=== PATIENT | female | born 1970 | race Caucasian/White ===

== ENCOUNTER → 2017-10-07 | Outpatient (CLI) | payer MEDICAID | LOC: FIMAGING 09:41 | PROVIDERS: ATTEND Internal Medicine | DX: R10.30 Lower abdominal pain, unspecified (principal); M25.551 Pain in right hip; R93.7 Abnormal findings on diagnostic imaging of other parts of musculoskeletal system ==

== ENCOUNTER → 2017-11-25 | Outpatient (CLI) | payer MEDICAID | LOC: FIMAGING 16:17 | PROVIDERS: ATTEND Internal Medicine | DX: S73.191A Other sprain of right hip, initial encounter (principal); M51.36 Other intervertebral disc degeneration, lumbar region; M47.896 Other spondylosis, lumbar region ==

== ENCOUNTER 2018-01-18 05:33 | Day surgery (SDC) | payer MEDICAID ==
[2018-01-18] MEDS ORDERED: LR 1,000 ML IV ONE (06:18)
[2018-01-18] MEDS ORDERED: LIDOCAINE 1% 2 ML INJ ID PRN (06:18)
[2018-01-18 06:54] LABS: PLATELET COUNT 371 10^3/uL (150-400)
[2018-01-18] MEDS ORDERED: MIDAZOLAM 2 MG/2 ML VIAL IVP ONE (06:59)
--- NOTE | 2018-01-18 06:59 | PDANEPAE ---
ANE Past Medical History - Cardiovascular History Hx Hypertension: No Hx Arrhythmias: No Hx Chest Pain: No Hx Coronary Artery / Peripheral Vascular Disease: No Hx CHF / Valvular Disease: No Hx Palpitations: No - Pulmonary History Hx COPD: No Hx Asthma/Reactive Airway Disease: Yes Hx Recent Upper Respiratory Infection: No Hx Oxygen in Use at Home: No Hx Sleep Apnea: No Sleep Apnea Screening Result - Last Documented: Negative Pulmonary History Comment: broncitis, uses inhalers - Neurologic History Hx Cerebrovascular Accident: No Hx Seizures: No Hx Dementia: No - Endocrine History Hx Diabetes: No Hypothyroid: No Hyperthyroid: No Obesity: yes, moderate - Renal History Hx Renal Disorders: No - Liver History Hx Hepatic Disorders: No - Neurological & Psychiatric Hx Hx Neurological and Psychiatric Disorders: Yes Neurological / Psychiatric History Comment: PTSD not on any medications - Cancer History Hx Cancer: No - Congenital Disorder History Hx Congenital Disorders: No - GI History GERD: moderate Hx Gastrointestinal Disorders: Yes Gastrointestinal History Comment: acid reflux. hx dysphagia - Other Health History Other Health History: dentures on top. anemia. iron deficent. menorragia - Chronic Pain History Chronic Pain: No (lower back hip muscle is torn) - Surgical History Prior Surgeries: appendectomy. tubal ligation ANE Review of Systems Review of systems is: negative Review of Systems: - Exercise capacity METS (RN): 3 METS ANE Patient History - Allergies Allergies/Adverse Reactions: Penicillins Allergy (Verified 01/15/18 11:00) Other-Enter Comments - Home Medications Home medications: home medication list seen and reviewed Home Medications: Advair 100/50 (*) 01/15/18 [Last Taken 01/18/18 04:30] Albuterol 01/15/18 [Last Taken 1 Day Ago ~01/17/18] Flonase Nasal [place] 01/15/18 [Last Taken 1 Day Ago ~01/17/18] Ibuprofen 01/15/18 [Last Taken 2 Weeks Ago ~01/04/18] Tizanidine HCl 01/15/18 [Last Taken 1 Day Ago ~01/17/18] Zyrtec 01/15/18 [Last Taken 1 Day Ago ~01/17/18] - NPO status NPO Since - Liquids (Date): 01/17/18 NPO Since - Liquids (Time): 20:00 NPO Since - Solids (Date): 01/17/18 NPO Since - Solids (Time): 14:00 - Anes Hx Anes Hx: no prior problems - Smoking Hx Smoking Status: Former smoker - Family Anes Hx Family Hx Anesthesia Complications: none ANE Labs/Vital Signs - Labs Result Diagrams: 01/18/18 06:40 - Vital Signs Blood Pressure: 114/78 Heart Rate: 77 Respiratory Rate: 18 O2 Sat (%): 94 Height: 154.94 cm Weight: 93.44 kg ANE Physical Exam - Airway Neck exam: FROM Mallampati Score: Class 2 Mouth exam: normal dental/mouth exam - Pulmonary Pulmonary: no respiratory distress - Cardiovascular Cardiovascular: regular rate and rhythym - ASA Status ASA Status: III ANE Anesthesia Plan Anesthesia Plan: GA w LMA
[2018-01-18] MEDS ORDERED: DEXAMETHASONE 4 MG/ML VIAL ONE (07:06)
[2018-01-18] MEDS ORDERED: fentaNYL 100 MCG/2 ML INJ ONE (07:06)
[2018-01-18] MEDS ORDERED: KETOROLAC 30 MG/1 ML SDV ONE (07:06)
[2018-01-18] MEDS ORDERED: PROPOFOL 200 MG/20 ML VIAL ONE (07:06)
[2018-01-18] MEDS ORDERED: ONDANSETRON 4 MG/2 ML VIAL ONE (07:06)
[2018-01-18] MEDS ORDERED: LIDOCAINE 2% 5 ML SDV ONE (07:10)
[2018-01-18] MEDS ORDERED: BUPIVACAINE 0.25% 30 ML SDV ONE (07:15)
[2018-01-18] MEDS ORDERED: SILVER NITRATE APPLICATOR 1 APPL TP ONE (07:16)
[2018-01-18] MEDS ORDERED: OPIUM/BELLADONNA ALKALO SUPP PR ONE (07:16)
--- NOTE | 2018-01-18 07:23 | PDGENHP ---
History & Physical Chief Complaint: AUB History of Present Illness: 47 yo who I met with in the office to discuss worsening AUB - heavy and increasingly irregular periods. Discussed options - prefers HSC ablation. Pertinent Past, Social, Family History: Non-pertinent. Relevant Physical Exam: NAD, RRR, LCTAB. Assessment & Plan Assessment: Preop: HSC, possible endometrial polypectomy/sampling, Bianca ablation Routine preop orders. No need for abx. Home from PACU with script for [place] and post-op instructions from me. RONNY
[2018-01-18] MEDS ORDERED: NALOXONE HCL 0.4 MG/ML INJ IVP PRN (08:08)
[2018-01-18] MEDS ORDERED: ONDANSETRON 4 MG/2 ML VIAL IVP PRN (08:08)
[2018-01-18] MEDS ORDERED: LR 500 ML IV PRN (08:08)
[2018-01-18] MEDS ORDERED: HYDROmorphONE/DILAUDID 2 MG/ML INJ IVP PRN (08:08)
[2018-01-18] MEDS ORDERED: fentaNYL 100 MCG/2 ML INJ IVP PRN (08:08)
[2018-01-18] MEDS ORDERED: PROMETHAZINE HCL 25 MG/ML INJ IVP PRN (08:08)
[2018-01-18] MEDS ORDERED: LABETALOL HCL 5 MG/ML 20 ML MDV IVP PRN (08:08)
[2018-01-18] MEDS ORDERED: HYDROCODONE/APAP 5/325 TAB PO PRN (08:08)
[2018-01-18] MEDS ORDERED: ACETAMINOPHEN 500 MG TAB PO PRN (08:08)
[2018-01-18] MEDS ORDERED: ALBUTEROL 3 ML DEYVIAL IH PRN (08:08)
--- NOTE | 2018-01-18 08:08 | POSTANESTH ---
Post Anesthetic Evaluation Cardiovascular Status: Normal, Stable Respiratory Status: Normal, Stable Level of Consciousness/Mental Status: Can Participate in Eval, Mildly Sleepy, Arousable Pain Control: Adequate, Prn Tx Ordered Nausea/Vomiting Control: Adequate, Prn Tx Ordered Complications Possibly Related to Anesthesia: None Noted
--- NOTE | 2018-01-18 08:20 | POSTOPPROG ---
Post Op Note Date of Operation: 01/18/18 Surgeon: Denzel Sim Bolt Machine Operator: None Anesthesia: GET(General Endotracheal) Pre-op Diagnosis: AUB Post-op Diagnosis: Same Procedure: Diagnostic hysteroscopy, endometrial sampling, Bianca ablation Findings: Normal size and shape of cavity, small polypoid lesions multiple Inf/Abcess present in the surg proc area at time of surgery?: No EBL: Minimal Complications: None Specimen(s): Endometrial sampling/polyps
--- NOTE | 2018-01-18 08:23 | SUROPNOTE ---
[facility] Operative Report - Surgery Date of Operation: 01/18/18 Surgeon: Denzel Sim Locomotive Boilermaker: None Anesthesia: GET(General Endotracheal) Pre-op Diagnosis: AUB Post-op Diagnosis: Same Procedure: Diagnostic hysteroscopy, endometrial sampling, Bianca ablation Findings: Normal size and shape of cavity, small polypoid lesions multiple Inf/Abcess present in the surg proc area at time of surgery?: No EBL: Minimal Complications: None Specimen(s): Endometrial sampling/polyps Technique: The patient was taken to the operating room where her identity and planned procedure were confirmed during timeout. The patient was placed under general anesthesia without issue. When anesthesia was found to be adequate, the patient was prepped and draped in the normal sterile fashion in dorsal lithotomy position in Hernán stirrups. No antibiotics were indicated nor given. The patient was straight cath'd for only 15cc concentrated urine. Villard speculum placed in the vagina and anterior lip of the cervix grasped with single-tooth tenaculum. A paracervical block was placed with 5cc of local anesthetic with epi at 4:00 and 8:00 locations at the cervico-vaginal junction - 12cc total. The cervix was carefully serially dilated first to allow uterine sound measurement, then to 6mm to allow TruClear hysteroscope. Dilation proceeded easily with no concerns for injury to the uterus. Scope inserted and findings noted as above. The TruClear device was used to remove any polypoid lesions and sample other surrounding endometrium. The scope was removed and prepared for ablation. A Deborah dilator was then advanced to the inner cervical os to measure the cervical length. The Bianca device was inserted to the fundus and cavity assessment initiated and passed. Treatment cycle initiated and full 120 seconds completed - successful ablation cycle. The hysteroscope was reinserted following ablation and confirmed uniform burn on all surfaces. The tenaculum was removed from the cervix and the tenaculum sites were found to be hemostatic. Sponge, lap, needle , and instrument counts were announced as as correct. B&O suppository placed at the conclusion of the case. I was scrubbed and present for the entire procedure.
[2018-01-18] MEDS ORDERED: ALBUTEROL 3 ML DEYVIAL ONE (10:09)
[2018-01-18 13:06] VITALS: BP 112/73
--- NOTE | 2018-01-22 09:07 | CPEKG ---
Heart Rate: 74 RR Interval: 811 P-R Interval: 144 QRSD Interval: 76 QT Interval: 424 QTC Interval: 471 P Napier: 4 QRS Napier: 70 T Wave Napier: 75 EKG Severity - NORMAL ECG - EKG Impression: SINUS RHYTHM Preliminary Awaiting MD Review
== END 2018-01-18 13:20 | disposition home or self-care (01) ==
LOC: FSGY 05:33
PROVIDERS: ATTEND Obstetrics & Gynecology
PROC: 0UDB8ZX Extraction of Endometrium, Via Natural or Artificial Opening Endoscopic, Diagnostic (ICD-10-PCS; principal; 2018-01-18 07:15)
PROC: 0U5B8ZZ Destruction of Endometrium, Via Natural or Artificial Opening Endoscopic (ICD-10-PCS; principal; 2018-01-18 07:15)
DX: N93.9 Abnormal uterine and vaginal bleeding, unspecified (principal); N84.0 Polyp of corpus uteri; D64.9 Anemia, unspecified; Z87.891 Personal history of nicotine dependence
CPT/HCPCS: 58353; C1782; J0171; J1100; J1885; J2250; J2405; J2704; J3010; J7613

== ENCOUNTER → 2018-03-02 | Outpatient (CLI) | payer MEDICAID | LOC: FIMAGING 14:57 | PROVIDERS: ATTEND Internal Medicine | DX: Z12.31 Encounter for screening mammogram for malignant neoplasm of breast (principal) ==

== ENCOUNTER → 2018-04-05 | Outpatient (CLI) | payer MEDICAID | LOC: FIMAGING 13:01 | PROVIDERS: ATTEND Internal Medicine | DX: M51.36 Other intervertebral disc degeneration, lumbar region (principal); M43.8X7 Other specified deforming dorsopathies, lumbosacral region ==

== ENCOUNTER 2018-09-24 04:38 | Inpatient (IN) | payer MEDICAID ==
--- NOTE | 2018-09-23 16:11 | PDGENHP ---
History and Physical - Chief Complaint Preop: TLH, LILIA, cysto - History of Present Illness 48 yo who I met in the office this past Summer to discuss long history of heavy and painful periods. Had benign EBX and recent normal pap. Discussed options and ultimately underwent Diagnostic hysteroscopy, endometrial sampling and Bianca ablation 01/18/18 with me here at [facility]. Path from that procedure also benign, normal cavity anatomically. Did well for 3-4 months with very light periods but reports now that her periods have returned to just as heavy as they have ever been. Discussed what tx options she has left and she'd like to proceed with hysterectomy. History Information - Allergies/Home Medication List Allergies/Adverse Reactions: Penicillins Allergy (Verified 01/15/18 11:00) Other-Enter Comments Home Medications: Advair 100/50 (*) 01/15/18 [Last Taken 01/18/18 04:30] Albuterol 01/15/18 [Last Taken 1 Day Ago ~01/17/18] Flonase Nasal [place] 01/15/18 [Last Taken 1 Day Ago ~01/17/18] Ibuprofen 01/15/18 [Last Taken 2 Weeks Ago ~01/04/18] Tizanidine HCl 01/15/18 [Last Taken 1 Day Ago ~01/17/18] Zyrtec 01/15/18 [Last Taken 1 Day Ago ~01/17/18] I have personally reviewed and updated: family history, medical history, social history, surgical history Past Medical History: Asthma, GERD, sciatica, depression/anxiety - Surgical History Additional surgical history: Appendectomy (open), left knee scope, tubal via minilap following her youngest child - Family History Positive for: non-pertinent - Social History Smoking Status: Former smoker Review of Systems Review of Systems: ROS: 10pt was reviewed & negative except for what was stated in HPI & below Physical Exam Physical Exam: Obese, NAD Belly is obese, surgical scars well-healed. Bimanual exam, uterus is small, mobile, non-tender. Assessment & Plan Assessment: Preop: TLH, LILIA, cysto for abnormal uterine bleeding, s/p recent endometrial ablation. - Routine preop abx (Gent and Clinda due to PCN allergy). - Pyridium 200mg PO x 1 PREOP. - Preop testing per Pre-admission team. RONNY
[2018-09-24] MEDS ORDERED: PHENAZOPYRIDINE HCL 200 MG TAB PO ONE (06:02)
[2018-09-24] MEDS ORDERED: GENTAMICIN SULFATE 120 MG in D5W 100 ML IV ONE (06:02)
[2018-09-24] MEDS ORDERED: CLINDAMYCIN 900 MG/DEXTROSE 50 ML IV ONE (06:02)
[2018-09-24] MEDS ORDERED: LR 1,000 ML IV ONE (06:03)
[2018-09-24] MEDS ORDERED: MIDAZOLAM 2 MG/2 ML VIAL IVP ONE (07:10)
--- NOTE | 2018-09-24 07:10 | PDANEPAE ---
ANE History of Present Illness total hysterectomy for abnormal uterine bleeding ANE Past Medical History - Cardiovascular History Hx Hypertension: No Hx Arrhythmias: No Hx Chest Pain: No Hx Coronary Artery / Peripheral Vascular Disease: No Hx CHF / Valvular Disease: No Hx Palpitations: No - Pulmonary History Hx COPD: No Hx Asthma/Reactive Airway Disease: Yes Hx Recent Upper Respiratory Infection: No Hx Oxygen in Use at Home: No Hx Sleep Apnea: No Sleep Apnea Screening Result - Last Documented: Negative Pulmonary History Comment: broncitis, uses inhalers - Neurologic History Hx Cerebrovascular Accident: No Hx Seizures: No Hx Dementia: No - Endocrine History Hx Diabetes: No Hypothyroid: No Hyperthyroid: No Obesity: moderate - Renal History Hx Renal Disorders: No - Liver History Hx Hepatic Disorders: No - Neurological & Psychiatric Hx Hx Neurological and Psychiatric Disorders: Yes Neurological / Psychiatric History Comment: PTSD not on any medications - Cancer History Hx Cancer: No - Congenital Disorder History Hx Congenital Disorders: No - GI History Hx Gastrointestinal Disorders: Yes Gastrointestinal History Comment: acid reflux. hx dysphagia - Other Health History Other Health History: dentures on top. anemia. iron deficent. menorragia. h/ o IV drug use - Chronic Pain History Chronic Pain: No (lower back hip muscle is torn) - Surgical History Prior Surgeries: appendectomy. tubal ligation ANE Review of Systems Review of Systems: - Exercise capacity Exercise capacity: >=4 METS METS (RN): 3 METS ANE Patient History - Allergies Allergies/Adverse Reactions: Penicillins Allergy (Verified 01/15/18 11:00) Other-Enter Comments shellfish derived Allergy (Verified 09/24/18 06:21) Unknown - Home Medications Home medications: home medication list seen and reviewed Home Medications: Advair 100/50 (*) 01/15/18 [Last Taken 09/20/18] Albuterol 01/15/18 [Last Taken 09/19/18] Flonase Nasal [place] 01/15/18 [Last Taken 09/20/18] Ibuprofen 01/15/18 [Last Taken 1 Month Ago ~08/25/18] Zyrtec 01/15/18 [Last Taken 09/20/18] - NPO status NPO Status: no food or drink >8 hours NPO Since - Liquids (Date): 09/23/18 NPO Since - Liquids (Time): 20:30 NPO Since - Solids (Date): 09/23/18 NPO Since - Solids (Time): 20:30 - Anes Hx Anes Hx: no prior problems - Smoking Hx Smoking Status: Former smoker - Family Anes Hx Family Hx Anesthesia Complications: none ANE Labs/Vital Signs - Vital Signs Vital Signs: reviewed preoperatively; see RN documention for details Blood Pressure: 127/71 Heart Rate: 83 Respiratory Rate: 18 O2 Sat (%): 93 Height: 152.4 cm Weight: 88.451 kg ANE Physical Exam - Airway Neck exam: FROM Mallampati Score: Class 2 Mouth exam: poor dentition, dentures - Pulmonary Pulmonary: no respiratory distress - Cardiovascular Cardiovascular: regular rate and rhythym - ASA Status ASA Status: III ANE Anesthesia Plan Anesthesia Plan: general endotracheal anesthesia
[2018-09-24] MEDS ORDERED: PROPOFOL 200 MG/20 ML VIAL ONE (07:13)
[2018-09-24] MEDS ORDERED: fentaNYL 100 MCG/2 ML INJ ONE ×2 (07:13→09:46)
[2018-09-24] MEDS ORDERED: ROCURONIUM 50 MG/5 ML VIAL ONE ×2 (07:15→08:06)
[2018-09-24] MEDS ORDERED: LIDOCAINE 2% 5 ML SDV ONE (07:15)
[2018-09-24] MEDS ORDERED: BUPIVACAINE 0.5% 30 ML SDV ONE (07:20)
[2018-09-24] MEDS ORDERED: EPINEPHrine 1 MG/ML INJ ONE (07:20)
[2018-09-24] MEDS ORDERED: DEXAMETHASONE 4 MG/ML VIAL ONE ×2 (07:21)
[2018-09-24] MEDS ORDERED: ONDANSETRON 4 MG/2 ML VIAL ONE (07:22)
[2018-09-24] MEDS ORDERED: ePHEDrine SULFATE 25 MG/5 ML SYR ONE (07:43)
[2018-09-24] MEDS ORDERED: BUPIVACAINE/EPI 0.25% 30 ML SDV ONE (07:43)
[2018-09-24] MEDS ORDERED: PHENYLEPHRINE HCL 100 MCG/ML SYR ONE (07:46)
[2018-09-24] MEDS ORDERED: MEPERIDINE 25 MG/0.5 ML AMP IVP PRN (08:31)
[2018-09-24] MEDS ORDERED: fentaNYL 100 MCG/2 ML INJ IVP PRN (08:31)
[2018-09-24] MEDS ORDERED: ALBUTEROL 3 ML DEYVIAL IH PRN (08:31)
[2018-09-24] MEDS ORDERED: PHENYLEPHRINE HCL 100 MCG/ML SYR IVP PRN (08:31)
[2018-09-24] MEDS ORDERED: DIAZEPAM 5 MG/ML 1 ML SYR IVP PRN (08:31)
[2018-09-24] MEDS ORDERED: oxyCODONE IR 5 MG TAB PO PRN (08:31)
[2018-09-24] MEDS ORDERED: LR 500 ML IV PRN (08:31)
[2018-09-24] MEDS ORDERED: ACETAMINOPHEN 500 MG TAB PO PRN (08:31)
[2018-09-24] MEDS ORDERED: LABETALOL HCL 5 MG/ML 20 ML MDV IVP PRN (08:31)
[2018-09-24] MEDS ORDERED: NALOXONE HCL 0.4 MG/ML INJ IVP PRN (08:31)
[2018-09-24] MEDS ORDERED: METOCLOPRAMIDE 10 MG/2 ML VIAL IVP PRN (08:31)
[2018-09-24] MEDS ORDERED: PROMETHAZINE HCL 25 MG/ML INJ IVP PRN (08:31)
[2018-09-24] MEDS ORDERED: HYDROmorphONE/DILAUDID 2 MG/ML INJ IVP PRN (08:31)
[2018-09-24] MEDS ORDERED: GLYCOPYRROLATE 0.2 MG/1 ML VIAL ONE ×2 (09:22)
[2018-09-24] MEDS ORDERED: NEOSTIGMINE METHYLSULFATE 5 MG/5 ML SYR ONE (09:22)
[2018-09-24] MEDS ORDERED: KETOROLAC 30 MG/1 ML SDV ONE (09:28)
--- NOTE | 2018-09-24 10:01 | POSTOPPROG ---
Post Op Note Date of Operation: 09/24/18 Surgeon: Denzel Sim Usability Specialist: Cherelle Cruz MD Anesthesia: GET(General Endotracheal) Pre-op Diagnosis: Abnormal uterine bleeding, Menorrhagia Post-op Diagnosis: Same Procedure: Total laparoscopic hysterectomy, bilateral salpingectomies, cystoscopy Findings: Nomal anatomy, evidence of prior tubal ligation Inf/Abcess present in the surg proc area at time of surgery?: No EBL: Minimal (25cc) Complications: None Specimen(s): Uterus, cervix, bilateral fallopian tubes
--- NOTE | 2018-09-24 10:02 | SUROPNOTE ---
[facility] Operative Report - Surgery Date of Operation: 09/24/18 Surgeon: Denzel Sim Regional Sales Coordinator: Cherelle Cruz MD Anesthesia: GET(General Endotracheal) Pre-op Diagnosis: Abnormal uterine bleeding, Menorrhagia, Failed endometrial ablation Post-op Diagnosis: Same Procedure: Total laparoscopic hysterectomy, bilateral salpingectomies, cystoscopy Findings: Normal intra-abdominal anatomy - normal visible aspects of liver, greater curvature of stomach, large and small bowel, Normal appearance of uterus , normal bilateral ovaries. Both tubes with evidence of prior tubal ligation procedure. Inf/Abcess present in the surg proc area at time of surgery?: No EBL: Minimal (25cc) Complications: None Specimen(s): Uterus, cervix, bilateral fallopian tubes Technique: The patient was taken to the operating room where confirmation of patient and procedure was obtained and general anesthesia was obtained without difficulty. She was placed in the dorsal lithotomy position and examined under anesthesia. Weight-based Clinda and Gent was ordered bc of PCN allergy. She was prepared and draped in the normal sterile fashion. A li catheter was placed. A bivalve speculum was then placed in the vagina and the anterior lip of the cervix was grasped with a single tooth tenaculum. A V-Care uterine manipulator was then placed into the uterus to provide a means to manipulate the uterus. The speculum was removed from the vagina and the V care cervical cup was secured. Attention was then turned to the patients abdomen where local with epi was injected in the umbilical fold and a 5mm transverse skin incision was made with the scalpel. A 5mm Optiview trocar was used to directly insert the trocar into the abdominal cavity under direct visualization. The abdomen was then insufflated with carbon dioxide gas. A brief scan of the abdominal cavity revealed no injuries with entry into the abdomen. Second and third skin incisions were made in the RLQ and LLQ after injection of local prior to insertion of two 5 mm trocars under direct visualization. Patient was placed in trendelenburg to improve visualization of the pelvic organs. Inspection of the pelvis revealed above findings. An atraumatic grasper was used to retract and elevate the uterus.The left fallopian tube was grasped and elevated and the Ligasure was used to divide the mesosalpinx and amputate the tube. The left utero-ovarian ligament and left round ligament were fulgurated and transected using the Ligasure. The anterior leaf of the broad ligament was transected on the left side down to the midline. Attention was then turned to the right. The right fallopian tube was grasped and elevated and the Ligasure was used to divide the mesosalpinx and amputate the tube. Tubes were brought out of 5mm ports. The right utero-ovarian ligament and right round ligament were fulgurated and transected using the harmonic. The anterior leaf of the broad ligament was transected on the right side down to the midline. The bladder was gently dissected off the lower uterine segment. The uterine arteries were identified and fulgurated and transected with excellent hemostasis. The cardinal ligament was then fulgurated and transected serially, bilaterally to the level of the V care cervical cup. The Ligasure Lhook was then used to make a colpotomy anteriorly and was then extended circumferentially around the cervix. Visualization of the pelvis revealed excellent hemostasis. The uterus was then removed vaginally without issue. We did take down some physiologic adhesions of the left transverse colon and proximal sigmoid to the left pelvic sidewall to facilitate colon retraction when closing the cuff. This was done with Ligasure and clearly far from the colon throughout that dissection. A FERNY bulb with 180 0 Vloc suture 9" within it was then placed in the vagina to maintain pneumoperitoneum. Instruments were exchanged for needle drivers and the cuff was closed using the Vloc suture in standard running unlocked fashion. Following this the pelvis was copiously irrigated demonstrating excellent hemostasis. Cystoscopy was performed with a 70 degree scope with normal findings - no injuries to the bladder itself and bilateral strong ureteral jets were easily seen with help of Pyridium-stained urine. The lateral trocars were removed under direct visualization and the abdomen was desufflated. The umbilical trocar was removed. The skin incisions were closed with 4-0 monocryl and Dermabond. The sponge, lap, instrument and needle counts were announced as correct times two. The patient was extubated and taken to the recovery room in stable condition. I was present and scrubbed and present during the entire procedure.
[2018-09-24] MEDS ORDERED: POLYETHYLENE GLYCOL 3350 17 GM PKT PO PRN (10:13)
[2018-09-24] MEDS ORDERED: MAGNESIUM HYDROXIDE 30 ML UDCUP PO PRN (10:13)
[2018-09-24] MEDS ORDERED: LACTULOSE 20 GM/30 ML UDCUP PO PRN (10:13)
[2018-09-24] MEDS ORDERED: BISACODYL 10 MG SUPP PR PRN (10:13)
[2018-09-24] MEDS ORDERED: ONDANSETRON 4 MG/2 ML VIAL IVP PRN (10:16)
[2018-09-24] MEDS ORDERED: HYDROmorphONE/DILAUDID 1 MG/ML INJ IVP PRN (10:16)
[2018-09-24] MEDS ORDERED: ONDANSETRON DISINTEGRATING 4 MG TAB PO PRN (10:16)
[2018-09-24] MEDS ORDERED: ZOLPIDEM TARTRATE 5 MG TAB PO PRN (10:16)
[2018-09-24] MEDS ORDERED: D5W LR 1,000 ML IV SCH (10:30)
[2018-09-24] MEDS ORDERED: PROMETHAZINE HCL 25 MG/ML INJ ONE (11:15)
[2018-09-24] MEDS ORDERED: HYDROmorphONE/DILAUDID 2 MG/ML INJ ONE (11:16)
--- NOTE | 2018-09-24 11:47 | POSTANESTH ---
Post Anesthetic Evaluation Cardiovascular Status: Normal, Stable Respiratory Status: Normal, Stable Level of Consciousness/Mental Status: Can Participate in Eval Pain Control: Adequate, Prn Tx Ordered Nausea/Vomiting Control: Adequate, Prn Tx Ordered Complications Possibly Related to Anesthesia: None Noted
[2018-09-24] MEDS: ACETAMINOPHEN 500 MG TAB PO SCH ×2 (13:37→18:37)
[2018-09-24] MEDS: IBUPROFEN 600 MG TAB PO SCH ×3 (13:38→22:07)
[2018-09-24] MEDS: KETOROLAC 30 MG/1 ML SDV IVP SCH ×2 (13:38→15:34)
--- NOTE | 2018-09-24 16:12 | ASMTCMCOM ---
CM Note CM Note Notes: Pt admitted for scheduled hysterectomy, anticipate she will dc home w/support of boyfriend when medically stable. CM availble for any needs. DC Plan: Independent Date Signed: 09/24/2018 04:11 PM Electronically Signed By:Katherine Manjarrez RN
--- NOTE | 2018-09-24 17:59 | SOAPPROG ---
SOAP Progress Note Assessment/Plan: Assessment: POD0 sp TLH, BS, cysto for menorrhagia and AUB. - VS WNL and stable, pain controlled, voiding without issue. - Routine advancements. OK to dc fluids if taking in adequate PO. - Will put script for [place] and dc instructions in chart - plan will be for dc tomorrow after seen by irrigation manager physician Ely Hearn, and after social work has had a change to see if we can help with housing/placement. - F/u with me in 2 and 6 wks for postop checks. - Lovenox 40 daily ordered to be given tomorrow AM before discharge. JM Subjective: Bekah is feeling pretty good - Pain minimal, has been up and around, tolerating full dinner this evening. Voiding without issue. Flatus but no BM. Pt related to me for the first time this evening that she and Eddie have recently been homeless and sleeping in her car for the past many weeks. Social work has already been consulted and they'll see if they can help with placement tomorrow AM prior to discharge. Objective: Vital Signs Temp Pulse Resp BP Pulse Ox 36.3 C 71 16 97/50 L 2 L 09/24/18 16:58 09/24/18 16:58 09/24/18 16:58 09/24/18 16:58 09/24/18 16:58 09/23/18 09/24/18 09/25/18 05:59 05:59 05:59 Intake Total 3300 Output Total 575 Balance 2725 - Time Spent With Patient Time Spent With Patient: 10mins - Pending Discharge Pending Discharge Within 24 Hours: Yes Pending Discharge Date: 09/25/18 Pending Discharge Time: 11:00 Physical Exam - Physical Exam General Appearance: WD/WN, alert, no apparent distress Abdomen: non-tender, soft, other (Incision CDI Dermabond), No distended, No guarding, No rebound ICD10 Worksheet Patient Problems: Problems Problem Status Onset Abnormal uterine bleeding (AUB) Acute
--- NOTE | 2018-09-24 18:01 | PDDCSUM ---
Discharge Summary Discharge Summary: Admitting Diagnosis: 1. AUB 2. Menorrhagia Discharge Diagnosis: 1. Same 2. S/p total laparoscopic hysterectomy, bilateral salpingectomies, cystoscopy Procedures: 1. Total laparoscopic hysterectomy, bilateral salpingectomies, cystoscopy Hospital Course: Bekah was admitted on the day of surgery and underwent an uncomplicated procedure. Her li came out in the OR after the case. She had IV pain meds that were converted to orals once she was able to tolerate some diet. On her first hospital day she had issues weaning her O2 needs, was having issues with CP and some SOB, nausea with vomiting and pain not adequately controlled with orals. We did feel it was important that she stay another night in the hospital. On the afternoon of POD2 she was off O2, pain much better controlled - and ready for home. Social work was consulted to see her during her stay as she and her partner Eddie are currently homeless and had been recently staying in their car. They connected Bekah with multiple resources for housing. At this point the plan is for them to stay in a motel for the next few nights while she recovers. Will dc now with plan to f/u with me in 2 and 6 wks. Consultations: None Condition: Excellent Disposition: Home (motel) w/ partner support New Discharge Medications: Percocet, Take 1-2 tabs PO q4hrs PRN for pain, #25 Continue scheduled ibuprofen per discharge instructions. Continue bowel regimen PRN per discharge instructions. Discharge Instructions: See discharge instruction sheet. Pending Studies: None Follow-up: 2 and 6 wks.
[2018-09-24] MEDS: FLUTICASONE/SALMETER 100/50MCG DISKUS IH SCH (20:59)
[2018-09-24] MEDS: SENNOSIDES/DOCUSATE SODIUM TAB PO SCH (20:59)
[2018-09-25] MEDS: ACETAMINOPHEN 500 MG TAB PO SCH ×3 (02:55→18:24)
[2018-09-25] MEDS ORDERED: PNEUMOCOCCAL 0.5ML VACCINE VIAL (PNEUMOVAX 23) IM ONE (04:16)
[2018-09-25] MEDS: IBUPROFEN 600 MG TAB PO SCH ×5 (04:21→21:57)
[2018-09-25] MEDS: FLUTICASONE/SALMETER 100/50MCG DISKUS IH SCH ×2 (08:15→21:51)
[2018-09-25] MEDS: SENNOSIDES/DOCUSATE SODIUM TAB PO SCH ×2 (09:33→20:41)
[2018-09-25] MEDS: oxyCODONE IR 5 MG TAB PO PRN ×2 (09:34→13:33)
[2018-09-25] MEDS: ENOXAPARIN 40 MG/0.4 ML SYR SC SCH (09:38)
--- NOTE | 2018-09-25 10:48 | ASMTCMCOM ---
CM Note CM Note Notes: Pt and fiance requested to meet with CM, they shared that they are living in their car. They want to know if CM can provide assistance with a place to stay. CM gave pt resources for [facility] in [place] or the [facility] in [place]. Per Edward at [facility], pt must choose [facility] or [place] for services. CM offered to reserve retirement bed but unless pt's fiance can get one she declines. Gave pt and fiance gloves, hats, and sweat shirts. DC Plan: Independent Date Signed: 09/25/2018 10:47 AM Electronically Signed By:Katherine Manjarrez RN
--- NOTE | 2018-09-25 12:58 | SOAPPROG ---
SOAP Progress Note Assessment/Plan: Assessment: 48 y/o POD #1 s/p TLH BSO secondary to menorrhagia after failed endometrial ablation Plan: She has had increased asthma symptoms, nausea and is having difficulties ambulating without light headness and dizziness. She is tolerating small amounts of crackers with her po pain meds. I feel we could justify 1 more night of inpatient care due to difficulties with recovery. I am concerned about a post-op recovery in a car especially with very cold temperatures in August. However, I feel that tomorrow, we will need to proceed with discharge. tiller worker has offered her a retirement bed, but she would like to stay with her fience. They will consider their options for d/c tomorrow. 09/25/18 12:59 Subjective: Pt reports having chest tightness and SOB and nausea. She reports feeling light headed and dizzy and is having difficulties moving around the room. She is voiding without difficulty, tolerating po pain meds and denies bleeding. She reports Ibuprofen, Tylenol and Oxy IR are controlling her pain. She has had some nausea relieved by Zofran. She was seen by case management this am to help with placement, because they have been living in their car. They report they do not have anywhere to go for her recovery and they are afraid to be in their car in the cold especially when she is immediately post-op. Case management said she could reserve a bed for Bekah in a retirement, but generally they will not be able to be together. They do not wish to do this and are not sure what they can do. Objective: Vital Signs Temp Pulse Resp BP Pulse Ox 36.6 C 58 L 18 165/89 H 92 09/25/18 11:12 09/25/18 11:12 09/25/18 11:12 09/25/18 11:12 09/25/18 11:12 Laboratory Results 09/25/18 04:30 09/24/18 09/25/18 09/26/18 05:59 05:59 05:59 Intake Total 3650 Output Total 1175 Balance 2475 - Time Spent With Patient Time Spent With Patient: 40 minutes, examining and coordinating care with RN and case management Physical Exam - Physical Exam General Appearance: WD/WN, alert, no apparent distress Neck: non-tender, full range of motion, supple Respiratory: chest non-tender, lungs clear, normal breath sounds Cardiac/Chest: regular rate, rhythm Abdomen: normal bowel sounds, other (incisions c/d/i, + normal eccomysis) ICD10 Worksheet Patient Problems: Problems Problem Status Onset Abnormal uterine bleeding (AUB) Acute
--- NOTE | 2018-09-25 14:15 | PDMN ---
Medical Necessity Medical [place] [facility] [place] [place], Laparoscopic: 48 yo s/p total lap hysterectomy/BSO POD#1, developed increased asthma s/sx w CP and SOB, nausea and difficulty ambulating prior to discharge. Change to IP status 09/25/18@ 1352 per MD order as pt requires additional MN for new post op s/sx and failing to meet d/c status criteria. Pt hx asthma, homelessness, failed endometrial ablation, PTSD.
[2018-09-26] MEDS: ACETAMINOPHEN 500 MG TAB PO SCH ×2 (03:56→09:29)
[2018-09-26] MEDS: IBUPROFEN 600 MG TAB PO SCH ×2 (05:14→09:29)
[2018-09-26 07:25] VITALS: BP 141/79
[2018-09-26] MEDS: SENNOSIDES/DOCUSATE SODIUM TAB PO SCH (07:26)
[2018-09-26] MEDS: ENOXAPARIN 40 MG/0.4 ML SYR SC SCH (09:29)
[2018-09-26] MEDS: FLUTICASONE/SALMETER 100/50MCG DISKUS IH SCH (09:30)
[2018-09-26] MEDS ORDERED: LOPERAMIDE HCL 2 MG CAP PO ONE (13:00)
--- NOTE | 2018-09-26 13:52 | SOAPPROG ---
SOAP Progress Note Assessment/Plan: Assessment: POD2 sp TLH, BS, cysto for menorrhagia and AUB. - VS WNL and stable, pain controlled, voiding without issue. Off O2. Immodium for loose stools this AM, can stop stool softener. - Medically-appropriate for dc this afternoon, going to motel. - F/u with me in 2 and 6 wks for postop checks. Subjective: Bekah is feeling much better this AM and is ready to discharge. She is no longer on oxygen, her pain is well-controlled with orals. They do have a hotel lined up for tonight and then Eddie feels like he will be able to secure housing for them for the next week as well if he as able to get back to work. She'd like Percocet for pain as opposed to Vicodin/Staples. Objective: Vital Signs Temp Pulse Resp BP Pulse Ox 36.7 C 94 16 141/79 H 92 09/26/18 07:23 09/26/18 07:23 09/26/18 07:23 09/26/18 07:23 09/26/18 07:23 Laboratory Results 09/25/18 04:30 09/25/18 09/26/18 09/27/18 05:59 05:59 05:59 Intake Total 3650 500 Output Total 1175 Balance 2475 500 Physical Exam - Physical Exam Abdomen: non-tender, soft, other (LS incisions are CDI with bruising (normal), Dermabond), No organomegaly, No distended, No guarding, No rebound ICD10 Worksheet Patient Problems: Problems Problem Status Onset Abnormal uterine bleeding (AUB) Acute
--- NOTE | 2018-09-26 14:22 | ASMTLACE ---
LACE Length of stay for Answers: 2 days current admission Acuity / Level of Answers: No Care: Did the patient have an inpatient admission? Comorbidities - select Answers: Other Notes: asthma all that apply # of Emergency department Answers: 0 visits in the last 6 months Social determinants Answers: Homelessness (street, group home) Mental health diagnosis (anxiety, depression, pers onality disorders, etc.) Score: 9 Date Signed: 09/26/2018 02:22 PM Electronically Signed By:Juli Lozano LCSW
--- NOTE | 2018-09-26 14:24 | ASMTDCNOTE ---
Case Management Discharge Discharge Order Complete? Answers: Yes Patient to Obtain Answers: Independently Medications Transportation Arranged Answers: Family/Friends Transport will Pick (Date 09/26/2018 03:00 PM & Time) Discharge Comments Notes: Patient has been discharged. She has been given clothes and offered a bed [facility] but prefers to be with her boyfriend. No other needs. Date Signed: 09/26/2018 02:24 PM Electronically Signed By:Juli Lozano LCSW
== END 2018-09-26 14:55 | disposition home or self-care (01) | DRG 513 ==
LOC: F3E 04:38 → OBSVTOIN 13:52
PROVIDERS: ADMIT Obstetrics & Gynecology; ATTEND Obstetrics & Gynecology
DX: N92.0 Excessive and frequent menstruation with regular cycle (principal); N93.9 Abnormal uterine and vaginal bleeding, unspecified; J45.909 Unspecified asthma, uncomplicated; K21.9 Gastro-esophageal reflux disease without esophagitis; M54.40 Lumbago with sciatica, unspecified side; Z87.891 Personal history of nicotine dependence; Z59.0 Homelessness; Z23 Encounter for immunization
CPT/HCPCS: G0009; J0171; J1100; J1170; J1580; J1650; J1885; J2370; J2405; J2550; J2704; J2710; J3010